=== PATIENT | female | born 1985 | race African-American/Black ===

== ENCOUNTER 2016-11-07 08:59 | Inpatient (IN) | payer MEDICAID ==
[~2016-11-07] VITALS: Ht 162.6 cm; Wt 117.5 kg
[~2016-11-07 08:59] MED LIST: AMLO10TA4 PO; KEPP500 *; LEVO500T15 PO; LISI-604 PO; PREVACID PO; gabapentin
[2016-11-07] MEDS ORDERED: ONDANSETRON HCL 4MG/2ML VIAL IV STA (09:23)
[2016-11-07] MEDS ORDERED: SODIUM CHLORIDE 0.9% 1,000 ML IV ONE (09:23)
[2016-11-07] MEDS ORDERED: MORPHINE SULFATE 4 MG/ML CPJ (NOT FOR IM USE) IV STA (09:23)
[2016-11-07] MEDS ORDERED: LORAZEPAM 2MG/ML CPJ IV ONE ×2 (09:30→11:45)
[2016-11-07] MEDS ORDERED: LEVETIRACETAM 1,000 MG in SODIUM CHLORIDE 0.9% 100 ML IV ONE (09:30)
[2016-11-07 09:53] LABS: BASOPHILS % 1.4 % (0.0-2.0); EOSINOPHILS % 0.9 % (0.0-5.0); HEMATOCRIT. 40.1 % (36.0-48.0); HEMOGLOBIN. 13.6 g/dL (12.0-16.0); LYMPHOCYTES % 18.5 % (20.0-50.0); MEAN CORPUSCULAR HEMOGLOBIN 27.8 pg (28.0-32.0); MEAN CORPUSCULAR HGB CONC 33.9 g/dL (31.0-37.0); MEAN CORPUSCULAR VOLUME 82.2 fL (81.0-99.0); MEAN PLATELET VOLUME 8.4 fl (7.4-10.4); MONOCYTES % 5.8 % (2.0-8.0); NEUTROPHILS % 73.4 % (40.0-76.0); PLATELET 265 x1000/uL (130-400); RED BLOOD CELL COUNT 4.88 mill/uL (4.2-5.4); RED CELL DISTRIBUTION WIDTH 14.2 % (11.6-14.6)
[2016-11-07 10:03] LABS: ALANINE AMINOTRANSFERASE 34 IU/L (13-61); ALBUMIN 3.2 g/dL (3.4-5.0); ANION GAP 13; CALCIUM 8.7 mg/dL (8.5-10.1); CARBON DIOXIDE 24 mEq/L (21-32); CHLORIDE 105 mEq/L (98-107); ETHANOL BLOOD < 10 mg/dL; INDEX HEMOLYSI 1 (1-3); INDEX ICTERIC 1 (1-4); INDEX LIPEMIC 1 (1-3); UREA NITROGEN BLOOD 15 mg/dL (7-21); eGFR > 60 mL/min (>60)
[2016-11-07 10:05] LABS: HCG SCREEN NEGATIVE
[2016-11-07] MEDS ORDERED: HYDROCODONE/ACETAMINOPHEN 10/325MG TABLET PO PRN (12:15)
[2016-11-07] MEDS ORDERED: HYDROCODONE/ACETAMINOPHEN 5/325MG TABLET PO PRN (12:15)
[2016-11-07] MEDS ORDERED: NA PHOS,M-B/NA PHOS,DI-BA ENEMA 118ML PR PRN (12:15)
[2016-11-07] MEDS ORDERED: DOCUSATE SODIUM 100MG CAPSULE PO PRN (12:15)
[2016-11-07] MEDS ORDERED: IPRATROPIUM/ALBUTEROL 0.5-3(2.5)MG/3ML NEB INH PRN (12:15)
[2016-11-07] MEDS ORDERED: DIPHENHYDRAMINE 50MG/ML VIAL IV PRN (12:15)
[2016-11-07] MEDS ORDERED: CLONIDINE 0.1MG TABLET PO PRN (12:15)
[2016-11-07] MEDS ORDERED: MAGNESIUM/ALUMINUM HYDROXIDE/SIMETHICONE 30ML UDC PO PRN (12:15)
[2016-11-07] MEDS ORDERED: LORAZEPAM 2MG/ML CPJ IV PRN (12:15)
[2016-11-07] MEDS ORDERED: ONDANSETRON HCL 4MG/2ML VIAL IV PRN (12:15)
[2016-11-07] MEDS: AMLODIPINE 10MG TABLET PO SCH (14:00)
[2016-11-07] MEDS: LISINOPRIL 20MG TABLET PO SCH ×2 (14:00→21:00)
[2016-11-07 15:38] VITALS: BP 124/87
[2016-11-07 15:51] VITALS: BP 124/87
[2016-11-07 16:00] VITALS: BP 124/87
[2016-11-07] MEDS ORDERED: DOCUSATE SODIUM 250MG CAPSULE PO PRN (16:15)
[2016-11-07] MEDS: MORPHINE SULFATE 4 MG/ML CPJ (NOT FOR IM USE) IV PRN ×2 (16:47→21:39)
[2016-11-07] MEDS ORDERED: DEXT 5%/0.45% NACL KCL 20MEQ/L 1,000 ML IV SCH (17:00)
[2016-11-07] MEDS ORDERED: LACO100T2 PO (18:09)
[2016-11-07 20:00] VITALS: BP 108/71
[2016-11-07] MEDS ORDERED: LEVETIRACETAM 500MG TABLET PO SCH (21:00)
[2016-11-07 23:21] LABS: CREATINE KINASE 109 IU/L (26-192); INDEX HEMOLYSI 1 (1-3); TROPONIN I < 0.02 ng/mL (0.00-0.04)
[2016-11-08] VITALS: BP 102/78
[2016-11-08 04:00] VITALS: BP 95/69
[2016-11-08] MEDS ORDERED: LIDOCAINE HCL/PF 1% 2ML VIAL ONE ×2 (07:00→11:00)
[2016-11-08] MEDS ORDERED: DEXT 5%/0.45% NACL KCL 20MEQ/L 1,000 ML IV SCH (07:00)
[2016-11-08 08:00] VITALS: BP 111/84
[2016-11-08] MEDS ORDERED: LEVETIRACETAM 500MG TABLET PO SCH (09:00)
[2016-11-08] MEDS ORDERED: LACOSAMIDE 200 MG PO SCH (09:00)
[2016-11-08] MEDS: AMLODIPINE 10MG TABLET PO SCH (09:05)
[2016-11-08] MEDS: LISINOPRIL 20MG TABLET PO SCH (09:06)
[2016-11-08 09:22] LABS: EOSINOPHILS % 1.4 % (0.0-5.0); HEMATOCRIT. 40.2 % (36.0-48.0); HEMOGLOBIN. 13.3 g/dL (12.0-16.0); LYMPHOCYTES % 26.4 % (20.0-50.0); MEAN CORPUSCULAR HEMOGLOBIN 27.7 pg (28.0-32.0); MEAN CORPUSCULAR HGB CONC 33.2 g/dL (31.0-37.0); MEAN CORPUSCULAR VOLUME 83.5 fL (81.0-99.0); MEAN PLATELET VOLUME 8.9 fl (7.4-10.4); MONOCYTES % 6.8 % (2.0-8.0); NEUTROPHILS % 64.4 % (40.0-76.0); PLATELET 258 x1000/uL (130-400); RED BLOOD CELL COUNT 4.81 mill/uL (4.2-5.4); RED CELL DISTRIBUTION WIDTH 14.1 % (11.6-14.6); WHITE BLOOD COUNT 9.6 x1000/uL (4.5-11.0)
[2016-11-08 09:26] LABS: BG BASE EXCESS 0.4 mmol/L (-2.0-2.0); BG CARBOXYHEMOGLOBIN 0.8 % (0.5-1.5); BG DEOXYHEMOGLOBIN 4.5 % (0.0-5.0); BG FRACTION INSPIRED OXYGEN 21; BG HCO3 ACT 23.6 mmol/L (22.0-26.0); BG METHEMOGLOBIN 0.2 % (0.0-1.5); BG OXYGEN SATURATION 95.5 % (92.0-98.5); BG OXYHEMOGLOBIN 94.5 % (94.0-97.0); BG PCO2 33.9 mmHg (35.0-45.0); BG PH 7.461 (7.350-7.450); BG PO2 75.3 mmHg (75.0-100.0); BG SAMPLE SITE RIGHT RADIAL; BG TOTAL HEMOGLOBIN 14.2 g/dL (12.0-18.0); BG VENT MODE ROOM AIR
[2016-11-08 09:42] LABS: ALANINE AMINOTRANSFERASE 33 IU/L (13-61); ANION GAP 10; CALCIUM 8.3 mg/dL (8.5-10.1); CARBON DIOXIDE 25 mEq/L (21-32); CHLORIDE 106 mEq/L (98-107); HDL CHOLESTEROL 66 mg/dL (40-59); INDEX HEMOLYSI 1 (1-3); INDEX ICTERIC 1 (1-4); INDEX LIPEMIC 1 (1-3); LDL CHOLESTEROL 58 mg/dL (5-100); T4 FREE 1.05 ng/dL (0.76-1.46); TRIGLYCERIDE 124 mg/dL (0-150); UREA NITROGEN BLOOD 7 mg/dL (7-21); eGFR > 60 mL/min (>60)
[2016-11-08 10:33] LABS: GLUCOSE URINE TRACE (NEGATIVE); KETONES URINE NEGATIVE (NEGATIVE); LEUKOCYTE ESTERASE URINE NEGATIVE (NEGATIVE); NITRITE URINE NEGATIVE (NEGATIVE); OCCULT BLOOD URINE NEGATIVE (NEGATIVE); PROTEIN URINE NEGATIVE (NEGATIVE); UROBILINOGEN URINE 0.2 E.U./dL (0.2-1.0)
[2016-11-08 10:35] LABS: CLARITY URINE CLEAR (CLEAR); COLOR URINE YELLOW (YELLOW)
[2016-11-08 10:48] LABS: *AMPHETAMINES SCREEN URINE NEGATIVE (NEGATIVE); *BARBITURATES SCREEN URINE NEGATIVE (NEGATIVE); *BENZODIAZEPINES SCREEN URINE NEGATIVE (NEGATIVE); ECSTASY MDMA SCREEN URINE NEGATIVE (NEGATIVE); METHADONE URINE SCREEN NEGATIVE (NEGATIVE); PHENCYCLIDINE URINE SCREEN NEGATIVE (NEGATIVE)
[2016-11-08 10:49] LABS: *COCAINE SCREEN URINE PRESUMTIVE POSITIVE (NEGATIVE); OPIATES URINE SCREEN PRESUMTIVE POSITIVE (NEGATIVE)
[2016-11-08 10:50] LABS: CANNABINOID URINE SCREEN PRESUMTIVE POSITIVE (NEGATIVE)
[2016-11-08 11:16] LABS: BACTERIA URINE TRACE
[2016-11-08 11:17] LABS: RBC URINE 0-2 /hpf (0-2); SQUAMOUS EPITHELIAL CELL URINE RARE /lpf (RARE/1+); WBC URINE 0-2 /hpf (0-2)
[2016-11-08] MEDS ORDERED: KCL 20MEQ/100ML PREMIX 100 ML IV SCH (12:00)
[2016-11-08 12:10] VITALS: BP 111/86
== END 2016-11-08 12:45 | disposition home or self-care (01) | DRG 53 ==
LOC: ER 09:22 → 5WST 11:48 → SUPCPDRO 12:07
PROVIDERS: ADMIT Internal Medicine; ATTEND Internal Medicine
DX: G40.901 Epilepsy, unspecified, not intractable, with status epilepticus (principal); I10 Essential (primary) hypertension; E44.1 Mild protein-calorie malnutrition; M26.621 Arthralgia of right temporomandibular joint; S03.01XA Dislocation of jaw, right side, initial encounter; F12.90 Cannabis use, unspecified, uncomplicated; F19.10 Other psychoactive substance abuse, uncomplicated; E87.6 Hypokalemia; Z91.19 Patient's noncompliance with other medical treatment and regimen; Z68.41 Body mass index [BMI] 40.0-44.9, adult
CPT/HCPCS: 36415; 36600; 70110; 70450; 70486; 80053; 80061; 80305; 81001; 82375; 82542; 82550; 82805; 84439; 84443; 84481; 84484; 84703; 85025; 93970; 96365; 96375; 99291; C1893; G0482; J1953; J2060; J2270; J2405; J3480; J3490; J7030; J7050

== ENCOUNTER 2016-11-22 13:59 | Emergency (ER) | payer MEDICAID ==
[~2016-11-22] VITALS: Ht 167.6 cm; Wt 125.0 kg
[~2016-11-22 13:59] MED LIST changes: +LACO100T2 PO
[2016-11-22] MEDS ORDERED: NON FORMULARY PATIENT HOME MED EA XX STA (14:50)
[2016-11-22] MEDS ORDERED: ACETAMINOPHEN 325MG TABLET PO ONE (15:00)
[2016-11-22] MEDS ORDERED: LEVETIRACETAM 500MG PREMIX 100 ML IV ONE (15:00)
[2016-11-22 15:29] LABS: CHLORIDE 111 mEq/L (98-107)
[2016-11-22] MEDS ORDERED: KETOROLAC 30MG/ML VIAL IV ONE (15:30)
[2016-11-22] MEDS ORDERED: KETOROLAC 60MG/2ML VIAL IM ONE (15:30)
[2016-11-22 15:33] LABS: BASOPHILS % 1.9 % (0.0-2.0); EOSINOPHILS % 1.5 % (0.0-5.0); HEMOGLOBIN. 11.9 g/dL (12.0-16.0); LYMPHOCYTES % 33.1 % (20.0-50.0); MEAN CORPUSCULAR HEMOGLOBIN 27.7 pg (28.0-32.0); MEAN CORPUSCULAR VOLUME 83.4 fL (81.0-99.0); MEAN PLATELET VOLUME 8.3 fl (7.4-10.4); MONOCYTES % 6.8 % (2.0-8.0); NEUTROPHILS % 56.7 % (40.0-76.0); PLATELET 252 x1000/uL (130-400); RED BLOOD CELL COUNT 4.31 mill/uL (4.2-5.4); RED CELL DISTRIBUTION WIDTH 14.4 % (11.6-14.6)
[2016-11-22 15:35] LABS: CARBON DIOXIDE 29 mEq/L (21-32)
[2016-11-22 15:39] LABS: HCG SCREEN NEGATIVE
[2016-11-22] MEDS ORDERED: LORAZEPAM 2MG/ML CPJ IV ONE (16:00)
[2016-11-22 16:12] VITALS: BP 133/100
== END 2016-11-22 16:40 | disposition home or self-care (01) ==
LOC: ER 14:08
DX: G40.909 Epilepsy, unspecified, not intractable, without status epilepticus (principal); I10 Essential (primary) hypertension; Z79.899 Other long term (current) drug therapy; S03.01XA Dislocation of jaw, right side, initial encounter; X50.1XXA Overexertion from prolonged static or awkward postures, initial encounter; Y93.89 Activity, other specified; Y92.89 Other specified places as the place of occurrence of the external cause; Y99.9 Unspecified external cause status
CPT/HCPCS: 36415; 80053; 84703; 85025; 96365; 96375; 99284; J1885; J1953; J2060; Z7610

== ENCOUNTER 2017-10-26 12:30 | Emergency (ER) | payer MEDICAID ==
[~2017-10-26] VITALS: Ht 160 cm; Wt 110.0 kg
[~2017-10-26 12:30] MED LIST changes: -LEVO500T15 PO; +LEVO500T2 PO
[2017-10-26] MEDS ORDERED: SODIUM CHLORIDE 0.9% 1,000 ML IV ONE (13:00)
[2017-10-26] MEDS ORDERED: LORAZEPAM 2MG/ML CPJ IV ONE ×2 (13:00→15:15)
[2017-10-26] MEDS ORDERED: ONDANSETRON HCL 4MG/2ML VIAL IV STA (13:00)
[2017-10-26] MEDS ORDERED: MORPHINE SULFATE 4 MG/ML CPJ (NOT FOR IM USE) IV STA (13:00)
[2017-10-26 13:28] LABS: BASOPHILS % 1.4 % (0.0-2.0); HEMATOCRIT. 40.6 % (36.0-48.0); HEMOGLOBIN. 13.8 g/dL (12.0-16.0); LYMPHOCYTES % 26.9 % (20.0-50.0); MEAN CORPUSCULAR HEMOGLOBIN 28.4 pg (28.0-32.0); MEAN CORPUSCULAR VOLUME 83.2 fL (81.0-99.0); MEAN PLATELET VOLUME 8.4 fl (7.4-10.4); MONOCYTES % 7.9 % (2.0-8.0); NEUTROPHILS % 62.8 % (40.0-76.0); PLATELET 284 x1000/uL (130-400); RED BLOOD CELL COUNT 4.87 mill/uL (4.2-5.4); RED CELL DISTRIBUTION WIDTH 14.7 % (11.6-14.6)
[2017-10-26 13:36] LABS: INR 1.1; PROTHROMBIN TIME 11.7 sec (9.4-11.6)
[2017-10-26 13:43] LABS: CHLORIDE 106 mEq/L (98-107)
[2017-10-26 13:47] LABS: ETHANOL BLOOD < 10 mg/dL
[2017-10-26 13:49] LABS: AMMONIA 30 uMol/L (<32)
[2017-10-26 13:52] LABS: CREATINE KINASE 105 IU/L (26-192)
[2017-10-26 13:55] LABS: HCG SCREEN NEGATIVE
[2017-10-26 14:13] LABS: CARBAMAZEPINE < 0.5 ug/mL (4-12); PHENOBARBITAL < 2.1 ug/mL (15.0-40.0); VALPROIC ACID < 3.0 ug/mL (50-100)
[2017-10-26] MEDS ORDERED: KETOROLAC 30MG/ML VIAL IV ONE (15:15)
[2017-10-26] MEDS ORDERED: BENZTROPINE MESYLATE 1MG TABLET PO ONE (16:45)
[2017-10-26 17:07] VITALS: BP 143/104
== END 2017-10-26 17:14 | disposition home or self-care (01) ==
LOC: ER 12:41
DX: R55 Syncope and collapse (principal); G24.9 Dystonia, unspecified; M62.838 Other muscle spasm; I10 Essential (primary) hypertension; E11.9 Type 2 diabetes mellitus without complications; R56.9 Unspecified convulsions
CPT/HCPCS: 36415; 80053; 80156; 80165; 80184; 80185; 82140; 82550; 82962; 83880; 84443; 84484; 84703; 85025; 85610; 93005; 96361; 96374; 96375; 96376; 99285; G0482; J1885; J2060; J2270; J2405; J7030; Z7610

== ENCOUNTER 2019-06-15 10:53 | Emergency (ER) | payer MEDICAID ==
[~2019-06-15] VITALS: Ht 172.7 cm; Wt 118.0 kg
[2019-06-15 11:32] LABS: BASOPHILS % 1.1 % (0.0-2.0); EOSINOPHILS % 2.4 % (0.0-5.0); HEMATOCRIT. 42.3 % (36.0-48.0); HEMOGLOBIN. 14.2 g/dL (12.0-16.0); LYMPHOCYTES % 27.1 % (20.0-50.0); MEAN CORPUSCULAR HEMOGLOBIN 27.7 pg (28.0-32.0); MEAN CORPUSCULAR VOLUME 82.5 fL (81.0-99.0); MEAN PLATELET VOLUME 8.2 fl (7.4-10.4); MONOCYTES % 5.3 % (2.0-8.0); NEUTROPHILS % 64.1 % (40.0-76.0); PLATELET 290 x1000/uL (130-400); RED BLOOD CELL COUNT 5.13 mill/uL (4.2-5.4); RED CELL DISTRIBUTION WIDTH 14.7 % (11.6-14.6)
[2019-06-15 11:40] LABS: CHLORIDE 107 mEq/L (98-107)
[2019-06-15] MEDS ORDERED: LORAZEPAM 2MG/ML CPJ IM STA ×2 (11:44→11:51)
[2019-06-15] MEDS ORDERED: LEVETIRACETAM 1000MG/100ML 100 ML IV ONE ×2 (11:45→12:00)
[2019-06-15 11:46] LABS: BG BASE EXCESS -1.5 mmol/L (-2.0-2.0); BG CARBOXYHEMOGLOBIN 1.5 % (0.5-1.5); BG DEOXYHEMOGLOBIN 3.1 % (0.0-5.0); BG FRACTION INSPIRED OXYGEN 21; BG HCO3 ACT 18.9 mmol/L (22.0-26.0); BG METHEMOGLOBIN 0.1 % (0.0-1.5); BG OXYGEN SATURATION 96.8 % (92.0-98.5); BG OXYHEMOGLOBIN 95.3 % (94.0-97.0); BG PCO2 22.5 mmHg (35.0-45.0); BG PH 7.542 (7.350-7.450); BG PO2 84.2 mmHg (75.0-100.0); BG SAMPLE SITE RIGHT BRACHIAL; BG TOTAL HEMOGLOBIN 14.2 g/dL (12.0-18.0); BG VENT MODE ROOM AIR
[2019-06-15 11:56] LABS: INR 1.1; PROTHROMBIN TIME 11.4 sec (9.6-11.0)
[2019-06-15] MEDS ORDERED: LORAZEPAM 2MG/ML CPJ ONE (12:01)
[2019-06-15] MEDS ORDERED: LORAZEPAM 1MG TABLET PO ONE (13:30)
[2019-06-15] MEDS ORDERED: LORAZEPAM 2MG/ML CPJ IV ONE (14:00)
[2019-06-15 14:23] VITALS: BP 130/90
== END 2019-06-15 15:04 | disposition home or self-care (01) ==
LOC: ER 11:04
DX: R56.9 Unspecified convulsions (principal); J70.5 Respiratory conditions due to smoke inhalation; J45.909 Unspecified asthma, uncomplicated; E11.9 Type 2 diabetes mellitus without complications; I10 Essential (primary) hypertension; F32.9 Major depressive disorder, single episode, unspecified
CPT/HCPCS: 36415; 36600; 80053; 82375; 82805; 85025; 85610; 96365; 96372; 96375; 99283; J1953; J2060

== ENCOUNTER 2023-06-02 19:20 | Emergency (ER) | payer MEDICAID ==
[~2023-06-02] VITALS: Ht 170.2 cm; Wt 120.0 kg
[~2023-06-02 19:20] MED LIST changes: -LISI-604 PO; +LISI20TA31 PO
[2023-06-02 19:26] VITALS: O2SAT 100
[2023-06-02] MEDS ORDERED: PANTOPRAZOLE SODIUM 40 MG/VIAL IV STA (19:26)
[2023-06-02] MEDS ORDERED: ONDANSETRON HCL 4MG/2ML INJ IV ONE (19:30)
[2023-06-02] MEDS ORDERED: SODIUM CHLORIDE 0.9% 1,000 ML IV ONE (19:30)
[2023-06-02] MEDS ORDERED: HALOPERIDOL LACTATE 5MG/ML VIAL IM ONE (19:30)
[2023-06-02 19:59] LABS: BASOPHILS % 0.7 % (0.0-2.0); EOSINOPHILS % 0.1 % (0.0-5.0); HEMATOCRIT. 40.6 % (36.0-48.0); HEMOGLOBIN. 13.1 g/dL (12.0-16.0); LYMPHOCYTES % 13.3 % (20.0-50.0); MEAN CORPUSCULAR HEMOGLOBIN 27.4 pg (28.0-32.0); MEAN CORPUSCULAR HGB CONC 32.3 g/dL (31.0-37.0); MEAN CORPUSCULAR VOLUME 84.7 fL (81.0-99.0); MEAN PLATELET VOLUME 8.5 fl (7.4-10.4); MONOCYTES % 2.9 % (2.0-8.0); PLATELET 317 x1000/uL (130-400); RED CELL DISTRIBUTION WIDTH 15.6 % (11.6-14.6); WHITE BLOOD COUNT 15.3 x1000/uL (4.5-11.0)
[2023-06-02 20:06] LABS: INR 1.2; PROTHROMBIN TIME 13.1 sec (9.6-11.0)
[2023-06-02 20:14] LABS: ALANINE AMINOTRANSFERASE 26 IU/L (10-49); ALBUMIN 4.4 g/dL (3.2-4.8); ASPARTATE AMINOTRANSFERASE 13 IU/L (<34); BILIRUBIN TOTAL 0.5 mg/dL (0.1-1.0); CALCIUM 9.6 mg/dL (8.7-10.4); CARBON DIOXIDE 21 mEq/L (21-32); CHLORIDE 105 mEq/L (98-107); CREATININE 0.8 mg/dL (0.6-1.0); GLUCOSE 182 mg/dL (70-105); POTASSIUM 3.8 mEq/L (3.5-5.1); PROTEIN TOTAL 7.1 g/dL (6.0-8.3); SODIUM 137 mEq/L (136-145)
[2023-06-02 20:27] LABS: HCG SCREEN NEGATIVE
[2023-06-02] MEDS ORDERED: MORPHINE SULFATE 4 MG/ML CPJ (NOT FOR IM USE) IV ONE (20:30)
[2023-06-02] MEDS ORDERED: METOCLOPRAMIDE HCL 10MG/2ML VIAL IV ONE (20:30)
[2023-06-02 21:03] LABS: UREA NITROGEN BLOOD < 5 mg/dL (9-23)
[2023-06-03] MEDS ORDERED: HALOPERIDOL LACTATE 5MG/ML VIAL IM ONE (00:30)
[2023-06-03 01:44] VITALS: BP 116/70; PULSE 93; RESP 19; TEMP 98.4
== END 2023-06-03 01:46 | disposition home or self-care (01) ==
LOC: ER 19:20
DX: R16.0 Hepatomegaly, not elsewhere classified (principal); I10 Essential (primary) hypertension; E11.9 Type 2 diabetes mellitus without complications; J45.909 Unspecified asthma, uncomplicated; Z86.59 Personal history of other mental and behavioral disorders
CPT/HCPCS: 80053; 84703; 83690; 85025; 85610; 36415; 71045; 74176; 76705; 96361; 96372; 96374; 96375; 99285; J1630; J2765; J2405; C9113; J2270; J7030; Z7610 ×4

== ENCOUNTER 2023-12-09 21:01 | Inpatient (IN) | payer MEDICAID, OTHER ==
[~2023-12-09] VITALS: Ht 175.3 cm; Wt 135.9 kg
[2023-12-09 21:06] VITALS: O2SAT 98
[2023-12-09] MEDS: ONDANSETRON HCL 4MG/2ML INJ IV STA (21:59)
[2023-12-09] MEDS: MORPHINE SULFATE 4 MG/ML INJ (FOR IV/IM USE) IV STA (21:59)
[2023-12-09] MEDS: SODIUM CHLORIDE 0.9% 1,000 ML IV ONE (22:00)
[2023-12-09 22:25] LABS: BASOPHILS % 1.2 % (0.0-2.0); EOSINOPHILS % 0.1 % (0.0-5.0); HEMATOCRIT. 40.7 % (36.0-48.0); HEMOGLOBIN. 13.4 g/dL (12.0-16.0); LYMPHOCYTES % 16.3 % (20.0-50.0); MEAN CORPUSCULAR HEMOGLOBIN 26.7 pg (28.0-32.0); MEAN CORPUSCULAR HGB CONC 32.8 g/dL (31.0-37.0); MEAN CORPUSCULAR VOLUME 81.3 fL (81.0-99.0); MEAN PLATELET VOLUME 9.2 fl (7.4-10.4); MONOCYTES % 6.3 % (2.0-8.0); NEUTROPHILS % 76.1 % (40.0-76.0); PLATELET 307 x1000/uL (130-400); RED CELL DISTRIBUTION WIDTH 14.7 % (11.6-14.6); WHITE BLOOD COUNT 14.3 x1000/uL (4.5-11.0)
[2023-12-09 22:32] LABS: CHLORIDE 104 mEq/L (98-107); POTASSIUM 3.6 mEq/L (3.5-5.1); SODIUM 133 mEq/L (136-145)
[2023-12-09 22:33] LABS: CARBON DIOXIDE 22 mEq/L (21-32)
[2023-12-09 22:34] LABS: CALCIUM 8.6 mg/dL (8.7-10.4)
[2023-12-09 22:35] LABS: HCG SCREEN NEGATIVE
[2023-12-09] MEDS: ONDANSETRON HCL 4MG/2ML INJ IV ONE (22:37)
[2023-12-09 22:38] LABS: CREATININE 0.8 mg/dL (0.6-1.0); GLUCOSE 220 mg/dL (70-105); UREA NITROGEN BLOOD 9 mg/dL (9-23)
[2023-12-09 22:40] LABS: ALANINE AMINOTRANSFERASE 26 IU/L (10-49); ALBUMIN 4.2 g/dL (3.2-4.8); ASPARTATE AMINOTRANSFERASE 11 IU/L (<34); TROPONIN I HIGH SENSITIVITY < 4 ng/L (3.0-34)
[2023-12-09 22:41] LABS: BILIRUBIN TOTAL 0.6 mg/dL (0.1-1.0); PROTEIN TOTAL 7.1 g/dL (6.0-8.3)
[2023-12-09 23:05] LABS: CLARITY URINE CLEAR (CLEAR); COLOR URINE YELLOW (YELLOW); GLUCOSE URINE NEGATIVE (NEGATIVE); KETONES URINE NEGATIVE (NEGATIVE); LEUKOCYTE ESTERASE URINE NEGATIVE (NEGATIVE); NITRITE URINE NEGATIVE (NEGATIVE); OCCULT BLOOD URINE TRACE (NEGATIVE); PH URINE 6.5 (4.5-8.0); PROTEIN URINE NEGATIVE (NEGATIVE); SPECIFIC GRAVITY URINE 1.013 (1.005-1.030); UROBILINOGEN URINE 0.2 E.U./dL (0.2-1.0)
[2023-12-09] MEDS: LORAZEPAM 2MG/ML INJ IV ONE (23:15)
[2023-12-09 23:19] LABS: BACTERIA URINE TRACE; RBC URINE 0-2 /hpf (0-2); SQUAMOUS EPITHELIAL CELL URINE 1+ /lpf (RARE/1+); WBC URINE 0-2 /hpf (0-2)
[2023-12-09 23:20] LABS: MUCUS URINE 1+ /lpf (< = 2+)
[2023-12-10] MEDS: AZITHROMYCIN 500MG/250ML 250 ML IV ONE (00:45)
[2023-12-10] MEDS: SODIUM CHLORIDE 0.9% 1000ML BAG (SEPSIS BOLUS) IV ONE (00:45)
[2023-12-10] MEDS: METOCLOPRAMIDE HCL 10MG/2ML VIAL IV ONE (01:53)
[2023-12-10] MEDS: CEFTRIAXONE 1GM/50ML 50 ML IV ONE (04:25)
[2023-12-10] MEDS: CEFTRIAXONE 1GM/50ML 50 ML IV NR (04:27)
[2023-12-10 09:19] VITALS: BP 138/72; PULSE 73; RESP 17; TEMP 98.1
[2023-12-10] MEDS: HYDROCODONE/ACETAMINOPHEN 10/325MG TABLET PO PRN (09:41)
[2023-12-10] MEDS: ONDANSETRON HCL 4MG/2ML INJ IV PRN (10:23)
[2023-12-10] MEDS ORDERED: MULT-1146 MT (10:34)
[2023-12-10] MEDS ORDERED: ONDA8TAB13 PO (10:37)
[2023-12-10] MEDS ORDERED: PANT40TA51 PO (10:37)
[2023-12-10] MEDS ORDERED: THIA100T72 MT (10:41)
[2023-12-10] MEDS ORDERED: POLY17PO43 MT (10:41)
[2023-12-10] MEDS ORDERED: DOCU-138 MT (10:41)
[2023-12-10] MEDS ORDERED: LOSA25TA26 MT (10:41)
[2023-12-10] MEDS ORDERED: METF-414 PO (10:45)
[2023-12-10] MEDS ORDERED: FOLI-43 MT (10:45)
[2023-12-10] MEDS ORDERED: MONT-39 MT (10:45)
[2023-12-10] MEDS ORDERED: CHLO25TA2 MT (10:45)
[2023-12-10] MEDS ORDERED: QUET50TA23 MT (10:45)
[2023-12-10] MEDS ORDERED: DAPA5TAB MT (10:45)
[2023-12-10] MEDS ORDERED: FAMO40TA7 MT (10:48)
[2023-12-10] MEDS ORDERED: LEVE10006 MT (10:49)
[2023-12-10] MEDS ORDERED: GABA-532 MT (10:50)
[2023-12-10 12:00] VITALS: BP 144/100; PULSE 82; RESP 18; TEMP 97.9
[2023-12-10] MEDS ORDERED: ACETAMINOPHEN 325MG TABLET PO PRN ×2 (13:15)
[2023-12-10] MEDS ORDERED: DEXTROSE 50% WATER 50ML SYRINGE IV PRN (13:15)
[2023-12-10] MEDS ORDERED: IPRATROPIUM/ALBUTEROL 0.5-3(2.5)MG/3ML NEB HHN PRN (13:15)
[2023-12-10] MEDS ORDERED: DOCUSATE SODIUM 100MG CAPSULE PO PRN (13:15)
[2023-12-10] MEDS: PANTOPRAZOLE SODIUM 40 MG/VIAL IV SCH (14:17)
[2023-12-10] MEDS: KETOROLAC 30MG/ML VIAL IV PRN (14:18)
[2023-12-10] MEDS: HYDRALAZINE HCL 25MG TABLET PO SCH (14:18)
[2023-12-10] MEDS: CLONIDINE 0.1MG TABLET PO PRN (14:19)
[2023-12-10] MEDS: LEVETIRACETAM 500MG PREMIX 100 ML IV SCH (14:48)
[2023-12-10 16:00] VITALS: BP 120/70; PULSE 90; RESP 18; TEMP 97.8
[2023-12-10] MEDS: BLOOD SUGAR DIAGNOSTIC STRIP TEST SCH (17:10)
[2023-12-10] MEDS: INSULIN LISPRO 100 UNITS/ML SUBCUT SCH (17:45)
[2023-12-10 18:30] LABS: BASOPHILS % 0.9 % (0.0-2.0); EOSINOPHILS % 0.1 % (0.0-5.0); HEMATOCRIT. 38.6 % (36.0-48.0); HEMOGLOBIN. 12.5 g/dL (12.0-16.0); MEAN CORPUSCULAR HEMOGLOBIN 26.8 pg (28.0-32.0); MEAN CORPUSCULAR HGB CONC 32.5 g/dL (31.0-37.0); MEAN CORPUSCULAR VOLUME 82.6 fL (81.0-99.0); MEAN PLATELET VOLUME 8.9 fl (7.4-10.4); MONOCYTES % 8.2 % (2.0-8.0); NEUTROPHILS % 67.8 % (40.0-76.0); PLATELET 278 x1000/uL (130-400); RED BLOOD CELL COUNT 4.67 mill/uL (4.2-5.4); RED CELL DISTRIBUTION WIDTH 14.8 % (11.6-14.6); WHITE BLOOD COUNT 12.9 x1000/uL (4.5-11.0)
[2023-12-10 18:35] LABS: CHLORIDE 102 mEq/L (98-107); POTASSIUM 3.2 mEq/L (3.5-5.1); SODIUM 134 mEq/L (136-145)
[2023-12-10 18:36] LABS: CARBON DIOXIDE 24 mEq/L (21-32); INR 1.2; PROTHROMBIN TIME 12.9 sec (9.6-11.0)
[2023-12-10 18:37] LABS: CALCIUM 8.2 mg/dL (8.7-10.4)
[2023-12-10 18:41] LABS: CREATINE KINASE MB FRACTION < 0.5 ng/mL (0.5-3.6); CREATININE 0.9 mg/dL (0.6-1.0); GLUCOSE 269 mg/dL (70-105); TRIGLYCERIDE 139 mg/dL (0-150)
[2023-12-10 18:42] LABS: ALANINE AMINOTRANSFERASE 23 IU/L (10-49); ASPARTATE AMINOTRANSFERASE 11 IU/L (<34); LDL CHOLESTEROL 54 mg/dL (5-100); UREA NITROGEN BLOOD 6 mg/dL (9-23)
[2023-12-10 18:43] LABS: ALBUMIN 3.6 g/dL (3.2-4.8)
[2023-12-10 18:44] LABS: BILIRUBIN DIRECT 0.2 mg/dL (<=3.0); BILIRUBIN TOTAL 0.5 mg/dL (0.1-1.0); CHOLESTEROL 121 mg/dL (<200); CREATINE KINASE 96 IU/L (34-145); HDL CHOLESTEROL 45 mg/dL (>65); PROTEIN TOTAL 6.4 g/dL (6.0-8.3)
[2023-12-10 18:45] LABS: TROPONIN I HIGH SENSITIVITY < 4 ng/L (3.0-34)
[2023-12-10 20:00] VITALS: BP 135/98; PULSE 90; RESP 18; TEMP 97.2
[2023-12-10] MEDS ORDERED: NALOXONE HCL 0.4MG/ML VIAL IV PRN (20:15)
[2023-12-10] MEDS: MORPHINE SULFATE 2 MG/ML CPJ (NOT FOR IM USE) IV NR (20:22)
[2023-12-10] MEDS: POTASSIUM CHLORIDE 20MEQ TABLET SR PO NR (20:46)
[2023-12-10 23:27] LABS: *AMPHETAMINES SCREEN URINE NEGATIVE (NEGATIVE); *BARBITURATES SCREEN URINE NEGATIVE (NEGATIVE); *BENZODIAZEPINES SCREEN URINE NEGATIVE (NEGATIVE); *COCAINE SCREEN URINE PRESUMPTIVE POSITIVE (NEGATIVE); CANNABINOID URINE SCREEN PRESUMPTIVE POSITIVE (NEGATIVE); ECSTASY MDMA SCREEN URINE NEGATIVE (NEGATIVE); METHADONE URINE SCREEN NEGATIVE (NEGATIVE); OPIATES URINE SCREEN PRESUMPTIVE POSITIVE (NEGATIVE); PHENCYCLIDINE URINE SCREEN NEGATIVE (NEGATIVE)
[2023-12-11] VITALS: BP 125/80; PULSE 80; RESP 20; TEMP 98
[2023-12-11 08:00] VITALS: BP 161/110; PULSE 94; RESP 20; TEMP 97.3
[2023-12-11] MEDS: LEVETIRACETAM 1000MG PREMIX 100 ML IV SCH (08:00)
[2023-12-11] MEDS ORDERED: LEVETIRACETAM 1,000 MG in SODIUM CHLORIDE 0.9% 100 ML IV SCH (08:00)
[2023-12-11] MEDS ORDERED: INSU100I28 SQ (10:50)
[2023-12-11 12:00] VITALS: BP 140/91; PULSE 94; RESP 20; TEMP 97.9
[2023-12-11] MEDS ORDERED: LIDOCAINE HCL 1% 10 MG/ML 10ML VIAL ONE (12:28)
[2023-12-11] MEDS: HYDROCODONE/ACETAMINOPHEN 10/325MG TABLET PO PRN (12:50)
[2023-12-11] MEDS ORDERED: IOHEXOL-350 100 ML BOTTLE ONE ×2 (15:08→19:15)
[2023-12-11 16:00] VITALS: BP 123/93; PULSE 87; RESP 20; TEMP 97.5
[2023-12-11 16:20] LABS: CALCIUM 8.7 mg/dL (8.7-10.4); CARBON DIOXIDE 24 mEq/L (21-32); CHLORIDE 104 mEq/L (98-107); POTASSIUM 3.7 mEq/L (3.5-5.1); SODIUM 135 mEq/L (136-145)
[2023-12-11 16:24] LABS: CREATININE 0.8 mg/dL (0.6-1.0); GLUCOSE 181 mg/dL (70-105); UREA NITROGEN BLOOD 5 mg/dL (9-23)
[2023-12-11] MEDS ORDERED: DEXTROSE 50% WATER 50ML SYRINGE IV PRN (17:45)
[2023-12-11] MEDS: INSULIN LISPRO 100 UNITS/ML SUBCUT SCH (18:00)
[2023-12-11 19:41] LABS: BASOPHILS % 0.7 % (0.0-2.0); EOSINOPHILS % 0.4 % (0.0-5.0); HEMATOCRIT. 39.8 % (36.0-48.0); HEMOGLOBIN. 13.1 g/dL (12.0-16.0); LYMPHOCYTES % 21.8 % (20.0-50.0); MEAN CORPUSCULAR HEMOGLOBIN 26.7 pg (28.0-32.0); MEAN CORPUSCULAR HGB CONC 32.8 g/dL (31.0-37.0); MEAN CORPUSCULAR VOLUME 81.2 fL (81.0-99.0); MEAN PLATELET VOLUME 9.2 fl (7.4-10.4); MONOCYTES % 7.7 % (2.0-8.0); NEUTROPHILS % 69.4 % (40.0-76.0); PLATELET 279 x1000/uL (130-400); WHITE BLOOD COUNT 13.3 x1000/uL (4.5-11.0)
[2023-12-11] MEDS ORDERED: LEVETIRACETAM 500MG PREMIX 100 ML IV SCH (21:00)
== END 2023-12-11 20:19 | disposition home or self-care (01) | DRG 48 ==
LOC: ER 21:01 → 5WST 12-10 00:31 → EDBEDREQ 12-10 00:32 → 8WST 12-10 09:15
PROVIDERS: ADMIT Internal Medicine; ATTEND Internal Medicine
PROC: 02HV33Z Insertion of Infusion Device into Superior Vena Cava, Percutaneous Approach (ICD-10-PCS; principal; 2023-12-11)
PROC: B548ZZA Ultrasonography of Superior Vena Cava, Guidance (ICD-10-PCS; 2023-12-11)
DX: E11.43 Type 2 diabetes mellitus with diabetic autonomic (poly)neuropathy (principal); E87.1 Hypo-osmolality and hyponatremia; R56.9 Unspecified convulsions; D72.829 Elevated white blood cell count, unspecified; E11.65 Type 2 diabetes mellitus with hyperglycemia; E66.9 Obesity, unspecified; E87.6 Hypokalemia; K76.9 Liver disease, unspecified; K31.84 Gastroparesis; Z20.822 Contact with and (suspected) exposure to COVID-19; I10 Essential (primary) hypertension; J45.909 Unspecified asthma, uncomplicated; F32.A Depression, unspecified; F19.10 Other psychoactive substance abuse, uncomplicated; Z79.899 Other long term (current) drug therapy; Z68.41 Body mass index [BMI] 40.0-44.9, adult
CPT/HCPCS: 36415; 36573; 71045; 71260; 74176; 74177; 76700; 80048; 80053; 80061; 80076; 80305; 81003; 82105; 82550; 82553; 82962; 83036; 83605; 84484; 84703; 85025; 87426; 93005; 99285; C1725; C1893; C9113; J0456; J0696; J1815; J1885; J1953; J2060; J2270; J2405; J2765; J3490; J7030; Q9967

== ENCOUNTER 2024-03-01 22:33 | Emergency (ER) | payer OTHER ==
[~2024-03-01] VITALS: Ht 162.6 cm; Wt 122.0 kg
[~2024-03-01 22:33] MED LIST changes: +ALBU2.5V13 NEB; +CHLO25TA2 MT; +DAPA5TAB MT; +DOCU-138 MT; +FAMO40TA7 MT; +FOLI-43 MT; +GABA-532 MT; +INSU100I28 SQ; +LEVE10006 MT; -LEVO500T2 PO; +LOSA25TA26 MT; +METF-414 PO; +MONT-39 MT; +MULT-1146 MT; +ONDA-241 PO; +PANT40TA51 PO; +POLY17PO43 MT; +QUET50TA23 MT; +THIA100T72 MT
[2024-03-01 22:39] VITALS: BP 124/80; PULSE 100; RESP 16; TEMP 98.3; O2SAT 100
== END 2024-03-02 01:03 | disposition left against medical advice (07) ==
LOC: ER 22:33
DX: R10.9 Unspecified abdominal pain (principal); R11.2 Nausea with vomiting, unspecified; Z53.21 Procedure and treatment not carried out due to patient leaving prior to being seen by health care provider

== ENCOUNTER 2024-11-26 18:37 | Emergency (ER) | payer OTHER ==
[~2024-11-26] VITALS: Ht 172.7 cm; Wt 140.0 kg
[~2024-11-26 18:37] MED LIST changes: +AMLO-905 PO; -AMLO10TA4 PO; +GABA-1180 MT; -GABA-532 MT; -KEPP500 *; +LEVE100023 MT; -LEVE10006 MT; -LOSA25TA26 MT; -ONDA-241 PO; -PANT40TA51 PO; -PREVACID PO
[2024-11-26 18:46] VITALS: O2SAT 99
[2024-11-26] MEDS: METOCLOPRAMIDE HCL 10MG/2ML VIAL IV ONE (20:22)
[2024-11-26] MEDS: SODIUM CHLORIDE 0.9% 1,000 ML IV ONE (20:22)
[2024-11-26] MEDS: KETOROLAC 30MG/ML VIAL IV ONE (20:22)
[2024-11-26 20:28] LABS: BASOPHILS % 0.9 % (0.0-2.0); EOSINOPHILS % 0.2 % (0.0-5.0); HEMATOCRIT. 42.1 % (36.0-48.0); HEMOGLOBIN. 13.7 g/dL (12.0-16.0); LYMPHOCYTES % 15.7 % (20.0-50.0); MEAN CORPUSCULAR HEMOGLOBIN 26.7 pg (28.0-32.0); MEAN CORPUSCULAR HGB CONC 32.5 g/dL (31.0-37.0); MEAN CORPUSCULAR VOLUME 82.3 fL (81.0-99.0); MEAN PLATELET VOLUME 8.8 fl (7.4-10.4); MONOCYTES % 4.4 % (2.0-8.0); NEUTROPHILS % 78.8 % (40.0-76.0); PLATELET 277 x1000/uL (130-400); RED BLOOD CELL COUNT 5.12 mill/uL (4.2-5.4); RED CELL DISTRIBUTION WIDTH 15.1 % (11.6-14.6); WHITE BLOOD COUNT 16.9 x1000/uL (4.5-11.0)
[2024-11-26 20:32] LABS: DIFFERENTIAL COMMENT 1
[2024-11-26 20:35] LABS: CHLORIDE 108 mEq/L (98-107); POTASSIUM 3.7 mEq/L (3.5-5.1); SODIUM 141 mEq/L (136-145)
[2024-11-26 20:37] LABS: CALCIUM 9.5 mg/dL (8.7-10.4); CARBON DIOXIDE 20 mEq/L (21-32)
[2024-11-26 20:41] LABS: HCG SCREEN NEGATIVE
[2024-11-26 20:42] LABS: CREATININE 0.8 mg/dL (0.6-1.0); GLUCOSE 145 mg/dL (70-105); UREA NITROGEN BLOOD 10 mg/dL (9-23)
[2024-11-26 20:43] LABS: ETHANOL BLOOD < 10 mg/dL (<10)
[2024-11-26 20:44] LABS: ALANINE AMINOTRANSFERASE 24 IU/L (10-49); ALBUMIN 4.4 g/dL (3.2-4.8); ASPARTATE AMINOTRANSFERASE 13 IU/L (<34); BILIRUBIN DIRECT 0.2 mg/dL (<=3.0)
[2024-11-26 20:45] LABS: BILIRUBIN TOTAL 0.5 mg/dL (0.1-1.0); PROTEIN TOTAL 7.8 g/dL (6.0-8.3)
[2024-11-26] MEDS: HALOPERIDOL LACTATE 5MG/ML VIAL IM ONE (20:45)
[2024-11-26 20:46] LABS: INR 1.2; PARTIAL THROMBOPLASTIN TIME 21.4 sec (23.4-31.0); PROTHROMBIN TIME 12.4 sec (9.6-11.0)
[2024-11-26] MEDS: MORPHINE SULFATE 4 MG/ML INJ (FOR IV/IM USE) IV ONE (21:15)
[2024-11-27] MEDS ORDERED: GUAIFENESIN 200MG/10ML SUGAR FREE UDC PO PRN (00:30)
[2024-11-27] MEDS ORDERED: IPRATROPIUM/ALBUTEROL 0.5-3(2.5)MG/3ML NEB HHN PRN (00:30)
[2024-11-27] MEDS ORDERED: DEXTROSE 50% WATER 50ML SYRINGE IV PRN (00:30)
[2024-11-27] MEDS ORDERED: ACETAMINOPHEN 325MG TABLET PO PRN ×2 (00:30)
[2024-11-27] MEDS ORDERED: MAGNESIUM/ALUMINUM HYDROXIDE/SIMETHICONE 30ML UDC PO PRN (00:30)
[2024-11-27] MEDS ORDERED: DOCUSATE SODIUM 100MG CAPSULE PO PRN (00:30)
[2024-11-27] MEDS ORDERED: HYDRALAZINE 20MG/ML VIAL IV PRN (00:30)
[2024-11-27 01:37] LABS: CLARITY URINE CLEAR (CLEAR); COLOR URINE YELLOW (YELLOW); GLUCOSE URINE TRACE (NEGATIVE); KETONES URINE 2+ (NEGATIVE); LEUKOCYTE ESTERASE URINE NEGATIVE (NEGATIVE); NITRITE URINE NEGATIVE (NEGATIVE); OCCULT BLOOD URINE NEGATIVE (NEGATIVE); PROTEIN URINE TRACE (NEGATIVE); SPECIFIC GRAVITY URINE 1.026 (1.005-1.030); UROBILINOGEN URINE 0.2 E.U./dL (0.2-1.0)
[2024-11-27] MEDS: SODIUM CHLORIDE 0.9% 1,000 ML IV SCH (01:38)
[2024-11-27 01:41] LABS: *AMPHETAMINES SCREEN URINE NEGATIVE (NEGATIVE); *BARBITURATES SCREEN URINE NEGATIVE (NEGATIVE); *BENZODIAZEPINES SCREEN URINE NEGATIVE (NEGATIVE); *COCAINE SCREEN URINE PRESUMPTIVE POSITIVE (NEGATIVE); METHADONE URINE SCREEN NEGATIVE (NEGATIVE)
[2024-11-27 01:42] LABS: CANNABINOID URINE SCREEN PRESUMPTIVE POSITIVE (NEGATIVE); ECSTASY MDMA SCREEN URINE NEGATIVE (NEGATIVE); OPIATES URINE SCREEN PRESUMPTIVE POSITIVE (NEGATIVE); PHENCYCLIDINE URINE SCREEN NEGATIVE (NEGATIVE)
[2024-11-27 01:51] LABS: BACTERIA URINE TRACE; RBC URINE NONE SEEN /hpf (0-2); SQUAMOUS EPITHELIAL CELL URINE 2+ /lpf (RARE/1+)
[2024-11-27] MEDS: METOCLOPRAMIDE HCL 10MG/2ML VIAL IV PRN (03:01)
[2024-11-27 03:05] VITALS: BP 116/81; PULSE 92; RESP 20; TEMP 36.7; O2SAT 99
[2024-11-27] MEDS ORDERED: PANTOPRAZOLE 40MG DR TABLET PO SCH (06:00)
[2024-11-27] MEDS ORDERED: LEVETIRACETAM 500MG PREMIX 100 ML IV SCH (06:00)
[2024-11-27] MEDS ORDERED: INSULIN LISPRO 100 UNITS/ML SUBCUT SCH (08:20)
[2024-11-27] MEDS ORDERED: LOSARTAN 50 MG TABLET PO SCH (09:00)
[2024-11-27] MEDS ORDERED: AMLODIPINE 10MG TABLET PO SCH (09:00)
[2024-11-27] MEDS ORDERED: ENOXAPARIN 40MG/0.4ML SYR SUBCUT SCH (09:00)
[2024-11-27] MEDS ORDERED: LACOSAMIDE 100MG TABLET PO SCH (09:00)
[2024-11-27] MEDS ORDERED: BLOOD SUGAR DIAGNOSTIC STRIP TEST SCH (09:00)
[2025-01-09] MEDS ORDERED: METO10TA3 MT (19:47)
[2025-01-09] MEDS ORDERED: PROT40 MT (19:48)
== END 2024-11-27 03:30 | disposition short-term general hospital (02) ==
LOC: ER 18:37
DX: K31.84 Gastroparesis (principal); J45.909 Unspecified asthma, uncomplicated; F31.9 Bipolar disorder, unspecified; E11.9 Type 2 diabetes mellitus without complications; I10 Essential (primary) hypertension; Z79.899 Other long term (current) drug therapy; Z98.890 Other specified postprocedural states
CPT/HCPCS: 80076; 80048; 80320; 84703; 83690; 85025; 85610; 85730; 36415; 71045; 74176; 96361; 96372; 96375; 99285; 80305; 81003; 96365; 96376; J1630; J1885; J2765 ×2; J2270; J7030; Z7610; G0480